=== PATIENT | female | born 1960 | race Caucasian/White ===

== ENCOUNTER → 2021-03-11 15:40 | Outpatient (CLI) | payer OTHER, SELFPAY ==
--- NOTE | ~2021-03-11 | MM_ITS ---
EXAMINATION: MM screening samuel BI w ted HISTORY: Screening TECHNIQUE: Craniocaudal and mediolateral oblique 3-D tomosynthesis images were obtained and synthetic 2-D images were generated. CAD analysis was submitted and interpreted. COMPARISON: No prior mammogram is available for comparison at this institution. BREAST PARENCHYMAL COMPOSITION: There are scattered areas of fibroglandular density. FINDINGS: There is no evidence of suspicious mass, calcification, or architectural distortion to sugg est malignancy in either breast. There has been no suspicious interval change. IMPRESSION: 1. No mammographic evidence of malignancy. 2. Recommend routine screening mammography in one year. BI-RADS Category 1: Negative Reviewed, dictated and finalized at location A.
== END ==
DX: Z12.31 Encounter for screening mammogram for malignant neoplasm of breast (principal)
CPT/HCPCS: 77063; 77067

== ENCOUNTER → 2022-06-08 11:14 | Outpatient (CLI) | payer OTHER, SELFPAY ==
--- NOTE | ~2022-06-08 | CT_ITS ---
EXAMINATION: CT sinus wo con DATE: 06/08/2022 11:28 INDICATION: Chronic maxillary sinusitis TECHNIQUE: Computed tomography (CT) of the paranasal sinuses was performed without intravenous contra st. The dose-length product (DLP) was 257.89 mGy-cm. Iterative reconstruction was used. COMPARISON: 11/05/2015 FINDINGS: There is normal development and pneumatization of the paranasal sinuses. There is mild muco sweta thickening in the frontal and left maxillary sinuses and the ethmoidal air cells. The sphenoid si nuses are clear. There are surgical changes of the right maxillary sinus. Chronic wall thickening is noted in the right maxillary sinus, consistent with chronic sinusitis. There is mild mucosal thickeni ng of the right maxillary sinus. The bilateral ostiomeatal complexes are patent. Visualized soft tiss ues are unremarkable. IMPRESSION: 1. Mild mucosal thickening of the sinuses and surgical changes of the right maxillary sinus. Reviewed, dictated and finalized at location A. T SPRAYING MACHINE OPERATOR HELPER IMPRESSION: 1. Mild mucosal thickening of the sinuses and surgical changes of the right max illary sinus.
== END ==
PROVIDERS: Visit Provider Otolaryngology
DX: J32.0 Chronic maxillary sinusitis (principal)
CPT/HCPCS: 70486

== ENCOUNTER → 2022-06-15 14:35 | Outpatient (CLI) | payer OTHER, SELFPAY ==
--- NOTE | ~2022-06-15 | MM_ITS ---
EXAMINATION: MM screening samuel BI w ted HISTORY: Screening TECHNIQUE: Craniocaudal and mediolateral oblique 3-D tomosynthesis images were obtained and synthetic 2-D images were generated. CAD analysis was submitted and interpreted. COMPARISON: 03/11/2021 BREAST PARENCHYMAL COMPOSITION: There are scattered areas of fibroglandular density. FINDINGS: There is no evidence of suspicious mass, calcification, or architectural distortion to sugg est malignancy in either breast. There has been no suspicious interval change. IMPRESSION: 1. No mammographic evidence of malignancy. 2. Recommend routine screening mammography in one year. BI-RADS Category 1: Negative Reviewed, dictated and finalized at location A. UCT EVANGELIST
== END ==
PROVIDERS: Visit Provider Obstetrics & Gynecology
DX: Z12.31 Encounter for screening mammogram for malignant neoplasm of breast (principal)
CPT/HCPCS: 77063; 77067

== ENCOUNTER → 2023-06-16 09:56 | Outpatient (CLI) | payer OTHER, SELFPAY ==
--- NOTE | ~2023-06-16 | MM_ITS ---
EXAMINATION: MM screening samuel BI w ted HISTORY: Screening TECHNIQUE: Craniocaudal and mediolateral oblique 3-D tomosynthesis images were obtained and synthetic 2-D images were generated. CAD analysis was submitted and interpreted. COMPARISON: Comparison to multiple prior studies sequentially, with oldest reviewed study dated 03/11. BREAST PARENCHYMAL COMPOSITION: Breast composed of scattered areas of fibroglandular density FINDINGS: There is no evidence of suspicious mass, calcification, or architectural distortion to sugg est malignancy in either breast. There has been no suspicious interval change. IMPRESSION: 1. No mammographic evidence of malignancy. 2. Recommend routine screening mammography in one year. BI-RADS Category 1: Negative Reviewed, dictated and finalized at location A. OMICS LECTURER
== END ==
PROVIDERS: PCP Obstetrics & Gynecology; Visit Provider Obstetrics & Gynecology
DX: Z12.31 Encounter for screening mammogram for malignant neoplasm of breast (principal)
CPT/HCPCS: 77063; 77067

== ENCOUNTER 2024-01-03 12:40 | Outpatient (CLI) | payer OTHER, SELFPAY ==
--- NOTE | ~2024-01-03 | XR_ITS ---
AP and lateral views of the bilateral hips Clinical history: Pain Findings: No acute fracture or dislocation is seen. Right hip arthroplasty in place. Left hip joint s pace is intact. Soft tissues are unremarkable. Impression: No acute abnormality. Right hip arthroplasty in place. Reviewed, dictated and finalized at location . Impression: No acute abnormality. Right hip arthroplasty in place.
--- NOTE | ~2024-01-03 | XR_ITS ---
Lumbosacral Spine: AP and lateral views Clinical History: Pain Findings: There is mild levoscoliosis. No fracture or subluxation seen. There is severe degenerative change at L3-L4 and L4-L5. There is severe facet arthropathy throughout the lumbar spine. The sacroil iac joints are normally outlined. Impression: Severe degenerative spondylosis, with associated levoscoliosis. Reviewed, dictated and finalized at location . Impression: Severe degenerative spondylosis, with associated levoscoliosis.
== END 2024-01-03 12:41 ==
PROVIDERS: Visit Provider Chiropractor
DX: M47.896 Other spondylosis, lumbar region (principal); M25.551 Pain in right hip; M25.552 Pain in left hip
CPT/HCPCS: 72100; 73521

== ENCOUNTER 2024-07-29 13:35 | Outpatient (CLI) | payer OTHER, SELFPAY ==
--- NOTE | ~2024-07-29 | MM_ITS ---
EXAMINATION: MM screening samuel BI w ted HISTORY: Screening mammogram TECHNIQUE: Craniocaudal and mediolateral oblique 3-D tomosynthesis images were obtained and synthetic 2-D images were generated. CAD analysis was submitted and interpreted. COMPARISON: 06/16/2023, 06/15/2022, 03/11/2021 BREAST PARENCHYMAL COMPOSITION:Not Dense. The breasts are almost entirely fatty FINDINGS: No suspicious mass, calcification, or architectural distortion are identified in either jose francisco ast to suggest malignancy. There has been no suspicious interval change. IMPRESSION: No mammographic evidence of malignancy. Recommend routine screening mammography in one year. BI-RADS Category 1: Negative Reviewed, dictated and finalized at location . ULTURE TEACHER
--- OUTSIDE RECORDS SUMMARY | 2024-07-29 14:34 | XMS_ITS | Referral Summary ---
Author Organization [facility] Address [address] [place] [address] Care Team Providers Care Automobile Spring Repairer Name Role Phone Kia David DO Unavailable [phone] Pedro Duong Primary Care Provider Allergies Active Allergy Reactions Criticality Noted Date Comments Egg Diarrhea Low 09/24/2013 Medications traMADoL (ULTRAM) 50 mg tablet Take 1 tablet (50 mg total) by mouth every 8 (eight) hours as needed 01/19/2021 Active progesterone (PROMETRIUM) 200 mg capsule Take 1 capsule (200 mg total) by mouth daily Active PARoxetine CR (PAXIL-CR) 12.5 mg 24 hr tablet 12/11/2021 Act massiel doxepin (SINEquan) 25 mg capsule TAKE 1 CAPSULE BY MOUTH EVERY DAY AT BEDTIME 03/18/2022 Active Breo Ellipta 100-25 mcg/dose diskus inhaler 03/18/2022 Acti ve albuterol HFA (PROVENTIL HFA,VENTOLIN HFA,PROAIR HFA) 90 mcg/actuation inhaler Inhale 2 puffs 01/24/2022 Active levothyroxine (SYNTHROID) 100 mcg tablet TAKE 1 TABLET BY MOUTH EVERY MORNING ON AN EMPTY STOMACH 11/10/2023 Active spironolactone (ALDACTONE) 100 mg tablet 10/09/2023 Active finasteride (PROPECIA) 1 mg tablet Take 1 tablet (1 mg total) by mouth daily 11/07/2023 Active naproxen (ANAPROX DS) 550 mg tablet Take 1 tablet (550 mg total) by mouth 2 (two) times a day with meals Take 1 table twice daily as needed for pain 30 tablet 3 01/16/2024 Active Active Problems Problem Noted Date Diagnosed Date Acquired hypothyroidism 09/28/2021 Allergic rhinitis 09/28/2021 Cervicalgia 09/28/2021 History of arthroplasty of left knee 09/28/2021 Hyperthyroidism 09/28/2021 Insomnia 09/28/2021 Joint pain 09/28/2021 Menopausal symptom 09/28/2021 Moderate persistent asthma with (acute) exacerba tion 09/28/2021 Artificial knee joint present 09/28/2021 Presence of unspecified artificial hip joint 10/2021 Primary osteoarthritis, unspecified hand 022 Rash 09/28/2021 Unspecified menopausal and perimenopausal disord er 09/28/2021 Anxiety disorder 10/01/2013 Arthritis 10/01/2013 GERD (gastroesophageal reflux disease) 4 Hyperlipidemia 10/01/2013 Morbid obesity 10/01/2013 Social History Tobacco Use Types Packs/Day Years Used Date Smoking Tobacco: Former Passive Smoke Exposure: Past Smokeless Tobacco: Never Tobacco Cessation:Counseling Given: Not Answered Personal Safety Answer Date Recorded Getting School Help Needed Not on file 06/07 Comments No Sex and Gender Information Value Date Recorded Sex Assigned at Not on file Legal Sex Female 7:34 PM CORPORATE LEGAL ASSISTANT Gender Identity Not on file Sexual Orientation Not on file Last Filed Vital Signs Vital Sign Reading Time Taken Comments Blood Pressure 114/89 01/11/2024 2:25 PM CDT Pulse - - Temperature - - Respiratory Rate - - Oxygen Saturation - - Inhaled Oxygen Concentration - - Weight 88.5 kg (195 lb) 01/11/2024 2:25 PM CDT Height 172.7 cm (5' 8 ) 01/11/2024 2:25 PM CDT Body Mass Index 29.65 01/11/2024 2:25 PM CDT Plan of Treatment Not on file Procedures Procedure Name Priority Date/Time Associated Diagnosis Comments THINPREP IMAGING PAP AND HPV MRNA E6/E7 REFLEX HPV 16,18/45 Routine 07/24/2023 2:33 PM CORPORATE LEGAL ASSISTANT Routine gynecological examination SCREENING MAMMOGRAM BILATERAL W TWAN Routine 12/03/2013 12:00 AM CDT from Last 3 Months or Most Recently Relevant to Health Maintenance Results * ThinPrep(R) Imaging Pap and HPV mRNA E6/E7 Reflex HPV 16,18/45 (07/24/2023 2:33 PM CORPORATE LEGAL ASSISTANT) CLINICAL INFORMATION: [facility] Comment:None given LMP [facility] Comment:NONE GIVEN Previous Pap [facility] Comment:NONE GIVEN Prev. Bx [facility] Comment:NONE GIVEN SOURCE: [facility] Comment:None given Pap, specimen adequacy [facility] Comment: Satisfactory for evaluation. Endocervical/transformation zone component present. HPV interp [facility] Comment: Cytology Results: Negative for intraepithelial lesion or malignancy. Infection: [facility] Comment: Fungal organisms morphologically consistent with Kelsey spp. COMMENTS [facility] Comment: This Pap test has been evaluated with computer assisted technology. Rehab Department Manager Que [facility] Comment: AISSATOU KNAPP(ASCP) CT Screening location: [address] [place] [address] [place] [address] Comment [facility] Comment: EXPLANATORY NOTE: The Pap is a screening test for cervical cancer. It is not a diagnostic test and is subject to false negative and false positive results. It is most reliable when a satisfactory sample, regularly obtained, is submitted with relevant clinical findings and history, and when the Pap result is evaluated along with historic and current clinical information. Human papillomavirus RNA, High Risk E6/E7 Not Detected Not Detected [facility] Comment: Methodology: Office Technology Instructor-Mediated Amplification This assay detects E6/E7 viral messenger RNA (mRNA) from 14 high-risk HPV types (16,18,31,33,35,39,45,51,52,56,58,59,66,68). Cervical sources are required for HPV testing. If a vaginal source from a patient who has had a total hysterectomy with removal of cervix was submitted, please contact the testing laboratory for alternative testing options. For additional information, please refer to http://education.Weblo.com/faq/FEW900e8 (This link if provided for information/ educational purposes only.) Swab 07/24/2023 2:33 PM CORPORATE LEGAL ASSISTANT 07/25/2023 1:26 AM CORPORATE LEGAL ASSISTANT Kia David DO LAB CYTOLOGY ORDERABLES Final Result [facility] [address] [place] [address] [facility] [address] [place] [address] * Screening Mammogram Bilateral W Twan (12/03/2013 12:00 AM CDT) Anatomical Region Laterality Modality Breast Bilateral Mammography 12/03/2013 2:59 PM CDT Narrative 12/09/2013 9:12 AM CDT - SCREENING MAMM BI W TWAN BILATERAL DIGITAL SCREENING MAMMOGRAM 3D/2D WITH CAD: 12/03/2013 CLINICAL: Routine screening. Patient has no complaints. ?? Comparison is made to exams dated: ??08/30/2004 and 01/28/2006 [facility]. ?? There are scattered fibroglandular elements in both breasts. ?? Current study was also evaluated with a Computer Aided Detection (CAD) system. ?? There is possible architectural distortion in the left breast at 2 o'clock posterior depth. ?? No other significant masses, calcifications, or other findings are seen in either breast. ?? IMPRESSION: INCOMPLETE:NEED ADDITIONAL IMAGING EVALUATION The possible architectural distortion in the left breast requires further evaluation. ??Additional views with possible ultrasound are recommended. ?? The patient will be contacted by letter. ?? Yelena Santizo M.D. ? microfilm mounter/penrad:12/09/2013 08:34:33 ?? letter sent: Abnormal Exam ?? Mammogram BI-RADS: 0 Requires further evaluation Radiologist: YELENA SANTIZO ?? Attending: ??PADMA SQUIRES M.D. Requesting: PADMA SQUIRES M.D. Requesting Fax: ?? Requesting ID: [id number] Attending Fax: ?? Attending ID: ?? [id number] Completed Time: ?? 12/03/2013 2:59 PM Dictated Time: ?N/A Transcribed Time: 12/09/2013 09:12 AM Signed by: ?YELENA SANTIZO ?? on 12/09/2013 09:12 AM Report To 1 ID: Report To 1 Name: , Report To 1 FAX: Report To 2 ID: Report To 2 Name: , Report To 2 FAX: Report To 3 ID: Report To 3 Name: , Report To 3 FAX: NextGen Order #: Procedure Note Provider, MD Jey - 10/21/2016 - SCREENING MAMM BI W TWAN BILATERAL DIGITAL SCREENING MAMMOGRAM 3D/2D WITH CAD: 12/03/2013 CLINICAL: Routine screening. Patient has no complaints. Comparison is made to exams dated: 08/30/2004 and 01/28/2006 [facility]. There are scattered fibroglandular elements in both breasts. Current study was also evaluated with a Computer Aided Detection (CAD) system. There is possible architectural distortion in the left breast at 2 o'clock posterior depth. No other significant masses, calcifications, or other findings are seen in either breast. IMPRESSION: INCOMPLETE:NEED ADDITIONAL IMAGING EVALUATION The possible architectural distortion in the left breast requires further evaluation. Additional views with possible ultrasound are recommended. The patient will be contacted by letter. Yelena Santizo M.D. [facility]/pendung:12/09/2013 08:34:33 letter sent: Abnormal Exam Mammogram BI-RADS: 0 Requires further evaluation Radiologist: YELENA SANTIZO Attending: PADMA SQUIRES M.D. Requesting: PADMA SQUIRES M.D. Requesting Requesting ID: [id number] Attending Attending ID: [id number] Completed Time: 12/03/2013 2:59 PM Dictated Time: N/A Transcribed Time: 12/09/2013 09:12 AM Signed by: YELENA SANTIZO on 12/09/2013 09:12 AM Report To 1 ID: Report To 1 Name: , Report To 1 FAX: Report To 2 ID: Report To 2 Name: , Report To 2 FAX: Report To 3 ID: Report To 3 Name: , Report To 3 FAX: NextGen Order #: Historical Provider MD SARAVIA MAMMO PROCEDURES Clarissa l Result from Last 3 Months or Most Recently Relevant to Health Maintenance Insurance [facility] H[facility]/PPO Address: [place] [address] [facility] CHOICE PLUS [facility] H[facility]/PPO Address[id number] [place] [address] Care Teams Automobile Spring Repairer Relationship Specialty Start Date End Date Pedro Duong PA [address] [place] [address] PCP - General Firearms Expert 05/08/24 [place] [address] [place] [address] Consulting Physician Obstetrics and Gynecology 01/08/24
--- OUTSIDE RECORDS SUMMARY | 2024-07-29 14:34 | XMS_ITS | Clinical Summary ---
Author Organization [facility] Address [address] [place] [address] Care Team Providers Care Ribbon Sweatband Operator Name Role Phone Kia David DO Unavailable [phone] Pedro Duong Primary Care Provider Allergies Active [...] disease) 4 Hyperlipidemia 10/01/2013 Morbid obesity 10/01/2013 Surgical History Surgery Date Site/Laterality Comments TOTAL HIP ARTHROPLASTY Right KNEE ARTHROPLASTY Left BARIATRIC SURGERY 06/26/2015 - 06/25/2016 gastric sleeve Medical History Medical History Date Comments Thyroid disease Anxiety Fibroids, intramural Family History Medical History Relation Name Comments No Known Problems Father No Known Problems Mother Breast cancer Neg Hx Colon cancer Neg Hx Ovarian cancer Neg Hx Relation Name Status Comments Father Alive Mother Alive Social History Tobacco Use Types Packs/Day Years Used Date Smoking Tobacco: Former Passive Smoke Exposure: Past Smokeless Tobacco: Never Tobacco Cessation:Counseling Given: Not Answered Personal Safety Answer Date Recorded Getting School Help Needed Not on file 06/07 Comments No Sex and Gender Information Value Date Recorded Sex Assigned at Not on file Legal Sex Female 7:34 PM PATTERN DUPLICATOR Gender Identity Not on file Sexual Orientation Not on file Obstetrics History Para Term AB IAB SAB Ectopic Multiple Livin g Live Births 0 0 0 0 0 0 0 0 0 0 0 Last Filed Vital Signs Vital Sign Reading [...] 01/11/2024 2:25 PM CDT Plan of Treatment Health Maintenance Due Date Last Done Comments Colon Cancer Screening-Colonoscopy 1962 Depression Screening 1962 Hepatitis C Screening 1962 Pneumococcal vaccine <65 (1 of 2 - PCV) 1968 DTaP/Tdap/Td Vaccine (1 - Tdap) 1973 Hepatitis B Screening 1980 Zoster Vaccine (1 of 2) 2012 Breast Cancer Screening-Mammogram 12/03/2014 014 Covid-19 Vaccine ( - season) 2024, 08/25/2020 Influenza Vaccine (#1) 2024 05/15/2023, 2019 Cervical Cancer Screening 07/24/20242023, 03/23/2022, 02/08/2021 Regular Well Visit/Exam 18-64 07/24/2024, 03/23/2022, 02/08/2021 Procedures Procedure Name Priority Date/Time Associated Diagnosis Comments THINPREP IMAGING PAP AND HPV MRNA E6/E7 REFLEX HPV 16,18/45 Routine 07/24/2023 2:33 PM PATTERN DUPLICATOR Routine gynecological examination SCREENING MAMMOGRAM BILATERAL W TWAN Routine 12/03/2013 12:00 AM CDT from Last 3 Months or Most Recently Relevant to Health Maintenance Results * ThinPrep(R) Imaging Pap and HPV mRNA E6/E7 Reflex HPV 16,18/45 (07/24/2023 2:33 PM PATTERN DUPLICATOR) CLINICAL INFORMATION: [facility] Comment:None given LMP [facility] Comment:NONE GIVEN Previous Pap [facility] Comment:NONE GIVEN Prev. Bx [facility] Comment:NONE GIVEN SOURCE: [facility] Comment:None given Pap, specimen adequacy [facility] Comment: Satisfactory for evaluation. Endocervical/transformation zone component present. HPV interp [facility] Comment: Cytology Results: Negative for intraepithelial lesion or malignancy. Infection: [facility] Comment: Fungal organisms morphologically consistent with Kelsey spp. COMMENTS [facility] Comment: This Pap test has been evaluated with computer assisted technology. Ultrasonic Hand Solderer Jamil [facility] Comment: KNAPP, CT(ASCP) CT Screening location: [address] [place] [id number] Comment [facility] Comment: EXPLANATORY NOTE: The Pap is [...] High Risk E6/E7 Not Detected Not Detected [facility] Vupen Hickory Comment: Methodology: Medical Coordinator Pesticide Use-Mediated Amplification This assay detects E6/E7 viral messenger RNA (mRNA) from 14 high-risk HPV types (16,18,31,33,35,39,45,51,52,56,58,59,66,68). Cervical sources are required for HPV testing. If a vaginal source from a patient who has had a total hysterectomy with removal of cervix was submitted, please contact the testing laboratory for alternative testing options. For additional information, please refer to http://education.Stadius/faq/VTB759t0 (This link if provided for information/ educational purposes only.) Swab 07/24/2023 2:33 PM PATTERN DUPLICATOR 07/25/2023 1:26 AM PATTERN DUPLICATOR Kia David DO LAB CYTOLOGY ORDERABLES Final Result [facility] [address] [id number] [facility] Vupen[facility] [address] [place] [address] * Screening Mammogram Bilateral W Twan (12/03/2013 12:00 AM CDT) Anatomical Region Laterality Modality Breast Bilateral Mammography 12/03/2013 2:59 PM CDT Narrative 12/09/2013 9:12 AM CDT - SCREENING MAMM BI W TWAN BILATERAL DIGITAL SCREENING MAMMOGRAM 3D/2D WITH CAD: 12/03/2013 CLINICAL: Routine screening. Patient has no complaints. ?? Comparison is made to exams dated: ??08/30/2004 and 01/28/2006 [facility]. ?? There are scattered fibroglandular elements in [...] by letter. ?? Yelena Santizo M.D. ? band scroll saw operator/penrad:12/09/2013 08:34:33 ?? letter sent: Abnormal Exam ?? Mammogram BI-RADS: 0 Requires further evaluation Radiologist: YELENA SANTIZO ?? Attending: ??PADMA SQUIRES M.D. Requesting: PADMA SQUIRES M.D. Requesting Fax: ?? Requesting ID: [id number] Attending Fax: ?? Attending ID: ?? [id number] Completed Time: ?? 12/03/2013 2:59 PM Dictated [...] dated: 08/30/2004 and 01/28/[address] [facility]. There are scattered fibroglandular elements in both [...] will be contacted by letter. Yelena Santizo M.D., cro/penrad:12/09/2013 08:34:33 letter sent: Abnormal Exam Mammogram BI-RADS: 0 Requires further evaluation Radiologist: YELENA SANTIZO Attending: PADMA SQUIRES M.D. Requesting: PADMA SQUIRES M.D. Requesting Requesting ID: [id number] Attending Attending ID: [id number] Completed Time: 12/03/2013 2:59 PM Dictated Time: N/A Transcribed Time: 12/09/2013 09:12 AM Signed by: YELENA SANTIZO on 12/09/2013 09:12 AM Report To 1 ID: Report To 1 Name: , Report To 1 FAX: Report To 2 ID: Report To 2 Name: , Report To 2 FAX: Report To 3 ID: Report To 3 Name: , Report To 3 FAX: NextGen Order #: us Historical Provider MD SARAVIA MAMMO PROCEDURES Clarissa travis Result from Last 3 Months or Most Recently Relevant to Health Maintenance Insurance [facility] CHOICE PLUS [facility]/PPO Address: [address] [address] [place] [address] [facility]/PPO Address: [address] [address] [place] [address] Care Teams Ribbon Sweatband Operator Relationship Specialty Start Date End Date Pedro Duong PA [address] [place] [address] PCP - General Animal Nutrition Teacher 05/08/24 [place] [address] [place] [address] Consulting Physician Obstetrics and Gynecology 01/08/24
== END 2024-07-29 13:36 | disposition home or self-care (01) ==
LOC: CHSIMG 13:36
PROVIDERS: Visit Provider Obstetrics & Gynecology
DX: Z12.31 Encounter for screening mammogram for malignant neoplasm of breast (principal)
CPT/HCPCS: 77063; 77067

== ENCOUNTER 2025-01-28 10:45 | Emergency (ER) | payer OTHER, SELFPAY ==
[2025-01-28 11:01] VITALS: BP 117/91; PULSE 84; RESP 20; TEMP 36.5; O2SAT 99
--- NOTE | 2025-01-28 11:38 | ED_ITS ---
HPI - Skin/Abscess/Foreign Bdy General Chief complaint: Skin/Abscess/Foreign Body Stated complaint: red itchy bumps all over Source: patient and RN notes reviewed Mode of arrival: ambulatory Limitations: no limitations History of Present Illness HPI narrative: 64-year-old female presents to the [facility] complaining of rash for proximally 4 days. Patient [facility] in the [facility] in a [place] she states stated that she developed a papular pruritic rash that scattered throughout her arms, trunk, back, and legs. Patient says her dog sleep with her states that she has found takes in her bed but denies any tick bites or tics being on her. Patient denies a dog have any flea. Patient is concerned that she may have scabies. Patient denies any fevers, body aches, chills, headaches, muscle aches, joint pain, nausea, vomiting, or other symptoms. She has Has been using hydrocortisone cream to help with itchiness. Related Data Allergies Allergy/AdvReac Type Severity Reaction Status Date / Time No Known Allergies Allergy Unverified 01/28/25 11:04 Review of Systems Review of Systems: CONSTITUTIONAL: Denies fever, chills, or sweats. EYES: Denies visual changes, redness, or discharge. ENT: Denies rhinorrhea, congestion, sore throat, or otalgia. CARDIOVASCULAR: Denies chest pain, palpitations, or edema. RESPIRATORY: Denies cough or dyspnea. GASTROINTESTINAL: Denies abdominal pain, nausea, vomiting, or diarrhea. GENITOURINARY: Denies dysuria or hematuria. SKIN: Positive for rash or itching. MUSCULOSKELETAL: Denies back pain, joint pain, or myalgia. NEUROLOGIC: Denies headache, numbness, or weakness. PSYCHIATRIC: Denies anxiety or depression. All other systems reviewed are negative, except as documented in HPI. [facility] Family History Family History Grandparent Diabetes mellitus Family history unknown Mother Family history of mental disorder Depression Father Family history of malignant neoplasm Social History Social History Smoking status: Never smoker Second hand tobacco smoke exposure: No Alcohol intake: never Comments At the time of my signature, I reviewed and agree with the nursing past medical, surgical, social, and family history. There is no relevant family history pertinent to the patient complaint. Exam Narrative: GENERAL: This is a well-nourished, well-developed adult, in no apparent distress. They are non ill-appearing, nontoxic appearing. HEAD: normocephalic, atraumatic. EYES: Sclera clear/white. Conjunctiva normal. Vision is grossly intact. Extraocular movements intact EARS: External ears normal, Hearing grossly intact. NOSE: External nose normal THROAT: Mucous membranes moist, NECK: Neck supple, CARDIOVASCULAR: Regular rate and rhythm RESPIRATORY: Respiratory rate normal, respiratory effort nonlabored, no respiratory distress SKIN: Small circular Papular pruritic rash scattered throughout the patient's back scantly to the bilateral arms, legs, and scantly on her abdomen. No area fluctuance, no induration, no exudate. Rashes nontender to palpate. NEURO: awake, alert, and oriented to person, place and time. There were no obvious focal neurologic abnormalities. EXTREMITIES: No joint tenderness, effusion, or edema noted. BACK: Nontender without deformity. Course Course Emergency Course: Portions of this record may have been created with voice recognition software Level of Care: Express Care Visit Vital Signs Vital signs: Vital Signs Temperature 97.7 F 01/28/25 11:01 Pulse Rate 84 01/28/25 11:01 Respiratory Rate 20 01/28/25 11:01 Blood Pressure 117/91 H 01/28/25 11:01 Pulse Oximetry 99 01/28/25 11:01 Oxygen Delivery Room Air 01/28/25 11:01 Temperature 97.7 F 01/28/25 11:01 Pulse Rate 84 01/28/25 11:01 Respiratory Rate 20 01/28/25 11:01 Blood Pressure 117/91 H 01/28/25 11:01 Pulse Oximetry 99 01/28/25 11:01 Oxygen Delivery Room Air 01/28/25 11:01 Reviewed MDM - Skin/Abscess/Foreign Bdy MDM Narrative Medical decision making narrative: Appears to be type of bug bite. Will prescribe prednisone due to intense itchiness and scattered rash. Will also prescribe triamcinolone cream to apply to the affected areas. Patient really concerned about having scabies, will prescribe a course of permethrin. Discussed physical exam findings. Advised supportive measures and signs/symptoms to go to the ER. Pt is appropriate for outpt treatment and f/u. Differential Diagnosis Differential diagnosis: Likely abscess of skin or subcutaneous tissue, viral exanthem, cellulitis, insect bites, contact dermatitis and other (Scabies) Critical Care Time Critical Care Time Critical Care Time: No Discharge Plan Discharge Clinical Impression: Bug bite Qualifiers: Encounter type: initial encounter Qualified Code(s): W57.XXXA - Bitten or stung by nonvenomous insect and other nonvenomous arthropods, initial encounter Patient Disposition: Home Condition: Stable Instructions: Insect Bite or Sting (ED) Additional Instructions: Apply permethrin to all areas of the body and leave on for 8-14 hours before washing off. It Is best to do it before bed and wash it off in the morning. Take the prednisone as directed. May use the steroid cream to the affected area for itchiness. Follow-up with PCP in 3-5 days. If you developed worsening swelling, redness, pain, full body rash, fevers, body aches, chills, headaches, joint pain, muscle aches, or any serious concerns please go to the ER immediately. Patient Language: Mongolian Prescriptions: New permethrin 5 % cream 1 applic topical ONCE Qty: 60 0RF Rx Instructions: leave on for 8 to 14 hrs before washing off prednisone 10 mg tablet 30 mg PO DAILY 5 Days Qty: 15 0RF triamcinolone acetonide 0.1 % cream 1 applic topical BID 7 Days Qty: 15 0RF Follow-up/Referrals: UNKNOWN,DOCTOR [Primary Care Provider] - Time of Disposition: 11:33
== END 2025-01-28 11:40 | disposition home or self-care (01) ==
DX: S20.469A Insect bite (nonvenomous) of unspecified back wall of thorax, initial encounter (principal); S40.862A Insect bite (nonvenomous) of left upper arm, initial encounter; S40.861A Insect bite (nonvenomous) of right upper arm, initial encounter; S80.862A Insect bite (nonvenomous), left lower leg, initial encounter; S80.861A Insect bite (nonvenomous), right lower leg, initial encounter; S30.861A Insect bite (nonvenomous) of abdominal wall, initial encounter; W57.XXXA Bitten or stung by nonvenomous insect and other nonvenomous arthropods, initial encounter
CPT/HCPCS: 99213; G0463